=== PATIENT | female | born 2000 | race Caucasian/White ===

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

== ENCOUNTER 2019-01-04 15:01 | Emergency (ER) | payer MEDICAID ==
[2019-01-04] MEDS ORDERED: BENZONATATE 100 MG CAPSULE PO STA (16:01)
[2019-01-04] MEDS ORDERED: IPRATROPIUM/ALBUTEROL 3 ML NEB INH STA (16:01)
--- NOTE | 2019-01-04 16:03 | ED Physician Documentation ---
PD HPI URI - Stated complaint Stated Complaint: SOA - Chief complaint Chief Complaint: Resp - History obtained from History obtained from: Patient, Family - History of Present Illness Timing - onset: How many weeks ago (2.5) Timing duration: Weeks (2.5) Timing details: Gradual onset Pain level max: 0 Pain level now: 0 Associated symptoms: Nasal congestion, Rhinorrhea, Productive cough. No: Fever, Chills, Hemoptysis, Chest pain, Dyspnea Contributing factors: Sick contact Improves by: Rest Worsened by: Activity, Breathing Similar symptoms before: Diagnosis ("bronchitis") Recently seen: Not recently seen Review of Systems Ten Systems: 10 systems reviewed and negative Constitutional: denies: Fever, Chills GI: denies: Nausea, Vomiting, Diarrhea : denies: Now EGA Skin: denies: Rash Musculoskeletal: denies: Neck pain, Back pain Neurologic: denies: Headache PD PAST MEDICAL HISTORY - Past Medical History Past Medical History: No Cardiovascular: None Respiratory: Asthma Neuro: None Endocrine/Autoimmune: None GI: None 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 : None HEENT: None Psych: Depression, Anxiety, Panic attacks, Other Musculoskeletal: None Derm: None - Past Surgical History Past Surgical History: Yes General: Appendectomy /TANK CAR 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: Dilation and currettage - Present Medications Home Medications: Ambulatory Orders Medication Instructions Recorded Confirmed Ondansetron Odt [Zofran] 4 mg TL Q6H PRN #10 tablet 08/31/18 11/09/18 Albuterol Sulf [Ventolin Hfa 1 - 2 puffs INH Q4HR PRN #1 inhaler 11/07/18 11/09/18 Inhaler] Azithromycin [Zithromax] 250 mg PO DAILY #6 tablet 11/07/18 Benzonatate [Tessalon Perle] 100 mg PO TID PRN #25 capsule 11/10/18 Naproxen 375 mg PO BID #20 tablet 11/10/18 dexAMETHasone [Decadron] 4 mg PO DAILY #5 tablet 11/10/18 guaiFENesin/CODEINE [Robitussin AC] 10 ml PO Q6H PRN #240 ml 11/10/18 Albuterol Sulfate [Proventil Hfa] 2 puffs IH Q4H PRN #1 hfa.aer.ad 01/04/19 Benzonatate 200 mg PO Q6H PRN #20 capsule 01/04/19 - Allergies Allergies/Adverse Reactions: Allergies Allergy/AdvReac Type Severity Reaction Status Date / Time amoxicillin AdvReac Nausea Verified 11/09/18 23:25 varenicline [From Chantix] AdvReac Unknown Verified 01/04/19 15:15 - Social History Does the pt smoke?: Yes Smoking Status: Current every day smoker Does the pt drink ETOH?: Yes Does the pt have substance abuse?: No Substance Use and Type: Marijuana - Immunizations Immunizations are current?: Yes - POLST Patient has POLST: No PD ED PE NORMAL - Vitals Vital signs reviewed: Yes - General General: Alert and oriented X 3, No acute distress - HEENT HEENT: PERRL, Ears normal, Moist mucous membranes, Pharynx benign - Neck Neck: Supple, no meningeal sign, No adenopathy - Cardiac Cardiac: RRR, Strong equal pulses - Respiratory Respiratory: No respiratory distress, Other (Diminished breath sounds and wheezing bilaterally) - Abdomen Abdomen: Soft, Non tender, Non distended - Derm Derm: Warm and dry, No rash - Extremities Extremities: No edema - Neuro Neuro: Alert and oriented X 3 - Psych Psych: Normal mood, Normal affect Results - Vitals Vitals: Vital Signs - 24 hr 01/04/19 01/04/19 01/04/19 15:11 16:20 17:21 Temperature 36.9 C Heart Rate 98 77 78 Respiratory 18 20 18 Rate Blood Pressure 126/75 132/77 H O2 Saturation 98 99 Oxygen O2 Source Room air - Rads (name of study) Chest x-ray Radiology: Prelim report reviewed, EMP read contemporaneously, See rad report (normal) PD MEDICAL DECISION MAKING - ED course Complexity details: reviewed old records, reviewed results, re-evaluated patient, considered differential, d/w patient ED course: Patient is well-appearing, nontoxic. Afebrile. No hypoxia. Feels better after breathing treatment. We will prescribe an inhaler for home. No evidence of pneumonia. No indication for antibiotics. Patient counseled to quit smoking. Patient counseled regarding signs and symptoms for which I believe and urgent re-evaluation would be necessary. Patient with good understanding of and agreement to plan and is comfortable going home at this time This document was made in part using voice recognition software. While efforts are made to proofread this document, sound alike and grammatical errors may occur. Departure - Departure Disposition: 01 Home, Self Care Clinical Impression: Upper respiratory infection Qualifiers: URI type: unspecified viral URI Qualified Code(s): J06.9 - Acute upper respiratory infection, unspecified Condition: Good Instructions: ED URI Viral W Wheezing Follow-Up: your,doctor in 1 week [Other] Prescriptions: Albuterol Sulfate [Proventil Hfa] 2 puffs IH Q4H PRN #1 hfa.aer.ad PRN Reason: wheezing Benzonatate 200 mg PO Q6H PRN #20 capsule PRN Reason: Cough Comments: Use the albuterol as prescribed. Return if you worsen. Your x-ray does not show any evidence of pneumonia today. Discharge Date/Time: 01/04/19 17:24
--- NOTE | 2019-01-04 16:24 | XRAY Report ---
Reason: cough, wheezing, shortness of breath Procedure Date: 01/04/2019 Accession Number: [id number] / [id number] Procedure: XR - Chest 2 View X-Ray CPT Code: 72773 Final Report FULL RESULT: EXAM: CHEST RADIOGRAPHY EXAM DATE: 01/04/2019 04:14 PM. CLINICAL HISTORY: Cough, wheezing, shortness of breath. COMPARISON: CHEST 2 VIEW 11/10/2018 12:49 AM. TECHNIQUE: 2 views. FINDINGS: Lungs/Pleura: No focal opacities evident. No pleural effusion. No pneumothorax. Normal volumes. Mediastinum: Heart and mediastinal contours are unremarkable. Other: None. IMPRESSION: Normal 2-view chest radiography. RADIA
[2019-01-04 17:21] VITALS: BP 132/77
== END 2019-01-04 17:24 | disposition home or self-care (01) ==
LOC: ED 15:01
DX: J06.9 Acute upper respiratory infection, unspecified (principal); F17.200 Nicotine dependence, unspecified, uncomplicated
CPT/HCPCS: 71046; 94640; 99283; 99284; A9270

== ENCOUNTER 2019-01-12 05:25 | Emergency (ER) | payer MEDICAID ==
--- NOTE | 2019-01-12 05:40 | ED Physician Documentation ---
PD HPI ABD PAIN - Stated complaint Stated Complaint: FEM - Chief complaint Chief Complaint: Abd Pain - History obtained from History obtained from: Patient - History of Present Illness Timing - onset: Enter time (00:30), Today Timing - details: Abrupt onset Pain level now: 4 Quality: Pain Location: Suprapubic Associated symptoms: Nausea, Vomiting, Vaginal bleeding. No: Fever Recently seen: Emergency Dept (8 days ago for dyspnea) - Additional information Additional information: 16th [facility] ED visit in 12 months. c/o pelvic pain, cramping. I had an IUD placed in February and having problems since then. she c/o pelvic cramping since 00:30 today with chills, vaginal bleeding, nausea, vomiting. she has had ED visits for same symptoms (04/01, 05/13, 06/04) with unclear cause (treated empirically for BV on two of these occasions). has appointment with her quality assurance lead later this month. Review of Systems Constitutional: reports: Reviewed and negative Cardiac: reports: Reviewed and negative Respiratory: reports: Reviewed and negative GI: reports: Nausea, Vomiting. denies: Abdominal Pain (pelvic pain) : reports: Vaginal bleeding. 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: Dilation and currettage - Present Medications Home Medications: Ambulatory Orders Medication Instructions Recorded Confirmed Ketorolac [Toradol] 10 mg PO Q6H PRN #20 tablet 01/12/19 Ondansetron Odt [Zofran] 4 mg TL Q6H PRN #10 tablet 01/12/19 Sertraline HCl 50 mg PO DAILY 01/12/19 01/12/19 - Allergies Allergies/Adverse Reactions: Allergies Allergy/AdvReac Type Severity Reaction Status Date / Time amoxicillin AdvReac Nausea Verified 01/12/19 05:32 [email or web address] [From Chantix] AdvReac Unknown Verified 01/12/19 05:32 - Social History Does the pt smoke?: Yes Smoking Status: Current every day smoker Does the pt drink ETOH?: Yes Does the pt have substance abuse?: No - Immunizations Immunizations are current?: Yes - POLST Patient has POLST: No PD ED PE NORMAL - Vitals Vital signs reviewed: Yes - General General: Alert and oriented X 3, No acute distress, Well developed/nourished - Cardiac Cardiac: RRR, No murmur - Respiratory Respiratory: No respiratory distress, Clear bilaterally - Abdomen Abdomen: Soft, Non tender - Back Back: No CVA TTP - Derm Derm: Normal color, Warm and dry PD ED PE EXPANDED - Female Female : Normal external, Vaginal Bleeding (trace blood with clear mucous at OS), Shop Girl present, Other (2 IUD strings visiualized at OS) Results - Vitals Vitals: Oxygen O2 Source Room air - Labs Labs: Laboratory Tests 01/12/19 01/12/19 01/12/19 05:40 05:46 05:46 WBC 7.8 RBC 4.80 Hgb 14.2 Hct 41.9 MCV 87.3 MCH 29.6 MCHC 33.9 RDW 12.9 Plt Count 230 MPV 9.2 Neut # (Auto) 3.9 Lymph # (Auto) 3.3 [place] # (Auto) 0.5 Eos # (Auto) 0.1 Baso # (Auto) 0.0 Absolute Nucleated RBC 0.00 Nucleated RBC % 0.0 Sodium 140 Potassium 3.4 L Chloride 103 Carbon Dioxide 27 Anion Gap 10.0 BUN 8 Creatinine 0.6 Estimated GFR (MDRD) 129 Glucose 101 H Calcium 10.3 Total Bilirubin 0.4 AST 17 ALT 12 Alkaline Phosphatase 78 Total Protein 8.4 H Albumin 4.7 Globulin 3.7 Albumin/Globulin Ratio 1.3 Lipase 27 Urine Color YELLOW Urine Clarity CLEAR Urine pH 5.5 Ur Specific [place] >=1.030 H Urine Protein NEGATIVE Urine Glucose (UA) NEGATIVE Urine Ketones NEGATIVE Urine Occult Blood TRACE-LYSE Urine Nitrite NEGATIVE Urine Bilirubin NEGATIVE Urine Urobilinogen 0.2 (NORMAL) Ur Leukocyte Esterase NEGATIVE Ur Microscopic Review NOT INDICATED Urine Culture Comments NOT INDICATED Urine HCG, Qual NEGATIVE PD MEDICAL DECISION MAKING - ED course Complexity details: reviewed results, re-evaluated patient, considered differential, d/w patient ED course: no significant findings on exam including pelvic exam. reassuring blood tests and unremarkable UA, negative HCG. does not want IUD removed, will see her quality assurance lead in 2 weeks. Departure - Departure Disposition: 01 Home, Self Care Clinical Impression: Pelvic pain Condition: Good Instructions: ED Pelvic Pain [facility] Follow-Up: Maria Del Rosario Pickering CNM, ARNP [Provider Admit Priv/Credential] - Prescriptions: Ketorolac [Toradol] 10 mg PO Q6H PRN #20 tablet PRN Reason: Pain Ondansetron Odt [Zofran] 4 mg TL Q6H PRN #10 tablet PRN Reason: Nausea / Vomiting Discharge Date/Time: 01/12/19 07:46
[2019-01-12 05:55] LABS: BASOPHILS % (AUTO) 0.4 %; EOSINOPHILS # (AUTO) 0.1 10^3/uL (0.0-0.7); EOSINOPHILS % (AUTO) 0.6 %; HGB - HEMOGLOBIN 14.2 g/dL (12.0-16.0); LYMPHOCYTES # (AUTO) 3.3 10^3/uL (1.5-3.5); MEAN CORPUSCULAR HEMOGLOBIN 29.6 pg (27.0-31.0); MEAN CORPUSCULAR HGB CONC 33.9 g/dL (32.0-36.0); MEAN CORPUSCULAR VOLUME 87.3 fL (81.0-99.0); MEAN PLATELET VOLUME 9.2 fL (7.9-10.8); MONOCYTES # (AUTO) 0.5 10^3/uL (0.0-1.0); MONOCYTES % (AUTO) 6.2 %; NEUTROPHILS # (AUTO) 3.9 10^3/uL (1.5-6.6); NEUTROPHILS % (AUTO) 50.7 %; PLT - PLATELET COUNT 230 10^3/uL (130-450); RED CELL DISTRIBUTION WIDTH 12.9 % (12.0-15.0); WHITE BLOOD COUNT 7.8 x10^3/uL (4.8-10.8)
[2019-01-12 05:56] LABS: BILIRUBIN,URINE NEGATIVE (NEGATIVE); GLUCOSE, URINE (UA) NEGATIVE (NEGATIVE); KETONES,URINE (UA) NEGATIVE (NEGATIVE); LEUKOCYTE ESTERASE, URINE NEGATIVE (NEGATIVE); NITRITE,URINE NEGATIVE (NEGATIVE); OCCULT BLOOD,URINE TRACE-LYSE (NEGATIVE); PH,URINE 5.5 PH (5.0-7.5); PROTEIN,URINE NEGATIVE (NEGATIVE); UROBILINOGEN,URINE 0.2 (NORMAL) E.U./dL (NORMAL)
[2019-01-12 05:58] LABS: CLARITY,URINE CLEAR (CLEAR); HCG UR QUAL NEGATIVE
[2019-01-12] MEDS ORDERED: ONDANSETRON 4 MG/2 ML VIAL IVP STA (06:00)
[2019-01-12] MEDS ORDERED: KETOROLAC 30 MG/ML VIAL IVP STA (06:00)
[2019-01-12 06:11] LABS: ALBUMIN 4.7 g/dL (3.2-5.5); ALBUMIN/GLOBULIN RATIO 1.3 (1.0-2.2); BILIRUBIN,TOTAL 0.4 mg/dL (0.2-1.0); CALCIUM 10.3 mg/dL (8.5-10.3); CREATININE 0.6 mg/dL (0.4-1.0); TOTAL PROTEIN 8.4 g/dL (6.7-8.2)
[2019-01-12 06:45] VITALS: BP 110/80
== END 2019-01-12 07:46 | disposition home or self-care (01) ==
LOC: ED 05:25
DX: R10.2 Pelvic and perineal pain (principal); F17.200 Nicotine dependence, unspecified, uncomplicated; Z97.5 Presence of (intrauterine) contraceptive device
CPT/HCPCS: 36415; 80053; 81001; 81003; 81025; 83690; 85025; 87086; 96374; 96375; 99284

== ENCOUNTER 2019-01-21 08:00 | Outpatient (CLI) | payer MEDICAID ==
[2019-01-21 18:52] LABS: CANDIDA GROUP DNA POSITIVE (NEGATIVE); CANDIDA KRUSEI DNA NEGATIVE (NEGATIVE); TRICHOMONAS VAGINALIS DNA NEGATIVE (NEGATIVE)
[2019-01-23 18:23] LABS: TRICHOMONAS VAGINALIS DNA NEGATIVE (NEGATIVE)
== END 2019-01-21 23:59 | disposition home or self-care (01) ==
LOC: LAB.R 08:00
PROVIDERS: ATTEND Nurse Practitioner Obstetrics & Gynecology
DX: R10.2 Pelvic and perineal pain (principal)
CPT/HCPCS: 87491; 87591; 87661; 87801

== ENCOUNTER 2019-02-23 23:52 | Emergency (ER) | payer MEDICAID ==
[2019-02-23 23:59] VITALS: BP 128/74
[2019-02-24] MEDS ORDERED: MAG HYDROX/AL HYDROX/SIMETH 30 ML UDC PO STA (00:41)
[2019-02-24] MEDS ORDERED: FAMOTIDINE 20 MG/2 ML VIAL IVP STA (00:41)
[2019-02-24] MEDS ORDERED: ONDANSETRON 4 MG/2 ML VIAL IVP STA (00:41)
[2019-02-24] MEDS ORDERED: SODIUM CHLORIDE 0.9% 1,000 ML IV ONE (00:41)
[2019-02-24] MEDS ORDERED: LIDOCAINE VISCOUS 2% 15 ML UDC MM STA (00:41)
[2019-02-24 01:06] LABS: BASOPHILS % (AUTO) 0.3 %; EOSINOPHILS # (AUTO) 0.1 10^3/uL (0.0-0.7); EOSINOPHILS % (AUTO) 0.5 %; LYMPHOCYTES # (AUTO) 4.3 10^3/uL (1.5-3.5); MEAN CORPUSCULAR HGB CONC 33.3 g/dL (32.0-36.0); MEAN CORPUSCULAR VOLUME 87.1 fL (81.0-99.0); MEAN PLATELET VOLUME 9.2 fL (7.9-10.8); MONOCYTES # (AUTO) 0.6 10^3/uL (0.0-1.0); MONOCYTES % (AUTO) 6.1 %; NEUTROPHILS # (AUTO) 5.2 10^3/uL (1.5-6.6); NEUTROPHILS % (AUTO) 50.8 %; PLT - PLATELET COUNT 227 10^3/uL (130-450); RED BLOOD COUNT 4.82 10^6/uL (4.20-5.40); RED CELL DISTRIBUTION WIDTH 13.2 % (12.0-15.0); WHITE BLOOD COUNT 10.2 x10^3/uL (4.8-10.8)
[2019-02-24 01:16] LABS: ALBUMIN 4.6 g/dL (3.2-5.5); ALBUMIN/GLOBULIN RATIO 1.2 (1.0-2.2); BILIRUBIN,TOTAL 0.6 mg/dL (0.2-1.0); CALCIUM 9.7 mg/dL (8.5-10.3); CREATININE 0.6 mg/dL (0.4-1.0); MAGNESIUM 1.9 mg/dL (1.7-2.8); TOTAL PROTEIN 8.3 g/dL (6.7-8.2)
[2019-02-24] MEDS ORDERED: ONDANSETRON ODT 4 MG Prepack 2 TL PRN (02:20)
--- NOTE | 2019-02-24 02:26 | ED Physician Documentation ---
PD HPI NVD - Stated complaint Stated Complaint: VOMITING - Chief complaint Chief Complaint: Abd Pain - History obtained from History obtained from: Patient - History of Present Illness Timing - onset: Today (Onset of 5:00 this morning with nausea and vomiting and upper abdominal pain. The pain is been inconsistent and mostly preceding the nausea and vomiting. She had been drinking heavily the night before and thought it was a stomach irritation from that. No unusual foods. No diarrhea. She has noted just some's mild hematemesis in the past couple of hours.) Timing - duration: Hours (18) Timing - details: Abrupt onset, Still present Associated symptoms: Abdominal pain (epigastric), Chest pain (some lower esophageal). No: Fever, Loss of appetite, Weight loss Contributing factors: Alcohol use (episodic but had drank moderately heavy the night before). No: Sick contact, Bad food, Recent antibiotics Similar symptoms before: Has not had sx before Review of Systems Constitutional: denies: Fever, Chills Nose: denies: Rhinorrhea / runny nose, Congestion Throat: denies: Sore throat Cardiac: denies: Palpitations Respiratory: denies: Cough GI: reports: Abdominal Pain, Nausea, Vomiting, Hematemesis (faint just the past couple of emeses.). 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: Dilation and currettage - Present Medications Home Medications: Ambulatory Orders Medication Instructions Recorded Confirmed Ketorolac [Toradol] 10 mg PO Q6H PRN #20 tablet 01/12/19 Ondansetron Odt [Zofran] 4 mg TL Q6H PRN #10 tablet 01/12/19 Sertraline HCl 50 mg PO DAILY 01/12/19 01/12/19 Famotidine 20 mg PO DAILY #20 tablet 02/24/19 Lidocaine Viscous 2% [Xylocaine 5 ml PO Q4H PRN #100 ml 02/24/19 Viscous 2%] Ondansetron Odt [Zofran] 4 mg TL Q6H PRN #10 tablet 02/24/19 - Allergies Allergies/Adverse Reactions: Allergies Allergy/AdvReac Type Severity Reaction Status Date / Time amoxicillin AdvReac Nausea Verified 02/23/19 23:59 [email or web address] [From Chantix] AdvReac Unknown Verified 02/23/19 23:59 - Social History Does the pt smoke?: Yes Smoking Status: Current every day smoker Does the pt drink ETOH?: Yes Does the pt have substance abuse?: No - Immunizations Immunizations are current?: Yes - POLST Patient has POLST: No PD ED PE NORMAL - Vitals Vital signs reviewed: Yes - General General: Alert and oriented X 3, Well developed/nourished - HEENT HEENT: Ears normal, Moist mucous membranes, Pharynx benign - Neck Neck: Supple, no meningeal sign, No adenopathy - Cardiac Cardiac: RRR, No murmur - Respiratory Respiratory: Clear bilaterally - Abdomen Abdomen: Normal bowel sounds, Soft, Non distended, No organomegaly, Other (Some tenderness with mild local guarding in the epigastric area. The right upper quadrant is not particularly tender. Limited bedside ultrasound did not show any obvious gallstones or wall thickening.) - Female Female : Deferred - Rectal Rectal: Deferred - Back Back: No CVA TTP - Derm Derm: Normal color Results - Vitals Vitals: Vital Signs - 24 hr 02/23/19 23:55 Temperature 36.0 C L Heart Rate 94 Respiratory 18 Rate Blood Pressure 128/74 O2 Saturation 98 Oxygen O2 Source Room air - Labs Labs: Laboratory Tests 02/24/19 02/24/19 00:50 00:50 WBC 10.2 RBC 4.82 Hgb 14.0 Hct 42.0 MCV 87.1 MCH 29.0 MCHC 33.3 RDW 13.2 Plt Count 227 MPV 9.2 Neut # (Auto) 5.2 Lymph # (Auto) 4.3 H [place] # (Auto) 0.6 Eos # (Auto) 0.1 Baso # (Auto) 0.0 Absolute Nucleated RBC 0.00 Nucleated RBC % 0.0 Sodium 138 Potassium 3.2 L Chloride 100 L Carbon Dioxide 27 Anion Gap 11.0 BUN 10 Creatinine 0.6 Estimated GFR (MDRD) 127 Glucose 87 Calcium 9.7 Magnesium 1.9 Total Bilirubin 0.6 AST 19 ALT 14 Alkaline Phosphatase 75 Total Protein 8.3 H Albumin 4.6 Globulin 3.7 Albumin/Globulin Ratio 1.2 Lipase 26 PD MEDICAL DECISION MAKING - ED course Complexity details: reviewed results, re-evaluated patient (Much improved with IV fluids and medications for nausea and some for pain. GI cocktail also gave improvement.), considered differential, d/w patient Departure - Departure Disposition: 01 Home, Self Care Clinical Impression: Nausea & vomiting Qualifiers: Vomiting type: unspecified Vomiting Intractability: non-intractable Qualified Code(s): R11.2 - Nausea with vomiting, unspecified Gastritis Qualifiers: Gastritis type: unspecified gastritis Chronicity: acute Gastritis bleeding: without bleeding Qualified Code(s): K29.00 - Acute gastritis without bleeding Condition: Stable Record reviewed to determine appropriate education?: Yes Instructions: ED Gastritis Prescriptions: Famotidine 20 mg PO DAILY #20 tablet Lidocaine Viscous 2% [Xylocaine Viscous 2%] 5 ml PO Q4H PRN #100 ml PRN Reason: Pain Ondansetron Odt [Zofran] 4 mg TL Q6H PRN #10 tablet PRN Reason: Nausea / Vomiting Comments: Stay well-hydrated with frequent fluids. [place] food initially and progress diet as able over the next couple of days. Avoid irritants such as alcohol, spicy foods, coffee.... Ondansetron every 6 hours if needed for nausea and vomiting. Antacid such as Maalox or Mylanta as needed for esophageal and stomach pain. You can add lidocaine to that if needed for the discomfort. Famotidine acid reducing medicine daily for the next 2 to 3 weeks to keep the stomach healing. Recheck if not improved well over the next few days completely. Discharge Date/Time: 02/24/19 02:46
== END 2019-02-24 02:46 | disposition home or self-care (01) ==
LOC: ED 23:52
DX: K29.00 Acute gastritis without bleeding (principal); F17.200 Nicotine dependence, unspecified, uncomplicated
CPT/HCPCS: 36415; 80053; 83690; 83735; 85025; 96374; 96375; 99283; 99284; A9270

== ENCOUNTER 2019-04-12 00:18 | Emergency (ER) | payer MEDICAID ==
--- NOTE | 2019-04-12 00:50 | ED Physician Documentation ---
PD HPI FEMALE - Stated complaint Stated Complaint: FEM - Chief complaint Chief Complaint: General - History obtained from History obtained from: Patient - History of Present Illness Timing - onset: How many weeks ago (2) Timing - duration: Weeks (2) Timing - details: Gradual onset, Still present Associated symptoms: Pelvic pain Similar symptoms before: Diagnosis () Recently seen: Not recently seen - Additional information Additional information: 19-year-old female who has an IUD in place has been dissatisfied with its side effects since it was put in. She feels that there is significant discomfort associated with it and she feels like she is now . She complains of change in nipple color breast tenderness nausea. She states that her sexual partner is unable to feel the strings to the IUD. She wants to "get her IUD checked out ". Review of Systems Constitutional: reports: Myalgias. denies: Fever Ears: denies: Ear pain Nose: denies: Congestion Throat: denies: Sore throat Cardiac: denies: Chest pain / pressure, Palpitations Respiratory: denies: Dyspnea, Cough GI: reports: Nausea, Vomiting : reports: Control (IUD). 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 : None HEENT: None Psych: Depression, Anxiety, Panic attacks, Other Musculoskeletal: None Derm: None - Past Surgical History Past Surgical History: Yes General: Appendectomy /ROPE TIER: Dilation and currettage - Present Medications Home Medications: Ambulatory Orders Medication Instructions Recorded Confirmed predniSONE [Deltasone] 2 tab PO DAILY 10 Days #10 tab 03/14/19 - Allergies Allergies/Adverse Reactions: Allergies Allergy/AdvReac Type Severity Reaction Status Date / Time amoxicillin AdvReac Nausea Verified 03/14/19 11:19 [email or web address] [From Chantix] AdvReac Unknown Verified 03/14/19 11:19 - Social History Does the pt smoke?: Yes Smoking Status: Current every day smoker Does the pt drink ETOH?: Yes Does the pt have substance abuse?: No - Immunizations Immunizations are current?: Yes - POLST Patient has POLST: No PD ED PE NORMAL - Vitals Vital signs reviewed: Yes (tachy and hypertensive) - General General: Alert and oriented X 3, No acute distress, Well developed/nourished - HEENT HEENT: Atraumatic, PERRL, EOMI - Respiratory Respiratory: No respiratory distress - Abdomen Abdomen: Soft, Non tender - Female Female : Cst present (Perla), Other (The IUD strings are visible there is pain associated with swabbing the cervix. There is cervical motion tendern ess as well.There is no significant discharge.) - Derm Derm: Normal color, Warm and dry, No rash - Extremities Extremities: No deformity, No edema - Neuro Neuro: Alert and oriented X 3, No motor deficit, No sensory deficit, Normal speech Eye Opening: Spontaneous Motor: Obeys Commands Verbal: Oriented GCS Score: 15 - Psych Psych: Normal mood, Normal affect Results - Vitals Vitals: Vital Signs - 24 hr 04/12/19 00:23 Temperature 36.8 C Heart Rate 116 H Respiratory 16 Rate Blood Pressure 144/84 H O2 Saturation 99 Oxygen O2 Source Room air - Labs Labs: Laboratory Tests 04/12/19 04/12/19 04/12/19 00:52 00:52 01:20 HCG, Quant < 0.60 Urine Color YELLOW Urine Clarity CLEAR Urine pH 6.0 Ur Specific [place] 1.025 1.025 Urine Protein NEGATIVE Urine Glucose (UA) NEGATIVE Urine Ketones NEGATIVE Urine Occult Blood NEGATIVE Urine Nitrite NEGATIVE Urine Bilirubin NEGATIVE Urine Urobilinogen 0.2 (NORMAL) Ur Leukocyte Esterase NEGATIVE Ur Microscopic Review NOT INDICATED Urine Culture Comments NOT INDICATED Urine HCG, Qual NEGATIVE Procedures - Bedside sono Bedside sono by EMP: With use of bedside ultrasound the pelvis is imaged and the IUD appears to be p ositioned in the fundus of the uterus appropriately. PD MEDICAL DECISION MAKING - ED course Complexity details: reviewed results, re-evaluated patient, considered differential, d/w patient, d/w family ED course: 19-year-old female with a feeling that she is has had 3- tests a test negative here in the urine and we have followed that up with blood test also demonstrating no evidence of . I did discuss with the patient the potential for pseudocyesis and she will take that under advisement. She did want her IUD "checked out "and here in the emergency department on pelvic examination the string appears intact and in the place that it belongs and on bedside ultrasound the IUD appears to be in the uterus in the appropriate position. She did have cervical motion tenderness with pelvic examination and some tenderness to swabbing the cervix and she is treated for pelvic infection with 250 mg of Rocephin IM and 1 g of azithromycin p.o. Sample is sent for analysis. Departure - Departure Disposition: 01 Home, Self Care Clinical Impression: IUD (intrauterine device) in place, Pelvic pain, PID (acute pelvic inflammatory disease) Condition: Stable Instructions: ED PID Follow-Up: [facility] [Provider Group]
[2019-04-12 01:00] LABS: BILIRUBIN,URINE NEGATIVE (NEGATIVE); GLUCOSE, URINE (UA) NEGATIVE (NEGATIVE); KETONES,URINE (UA) NEGATIVE (NEGATIVE); LEUKOCYTE ESTERASE, URINE NEGATIVE (NEGATIVE); NITRITE,URINE NEGATIVE (NEGATIVE); OCCULT BLOOD,URINE NEGATIVE (NEGATIVE); PROTEIN,URINE NEGATIVE (NEGATIVE); UROBILINOGEN,URINE 0.2 (NORMAL) E.U./dL (NORMAL)
[2019-04-12 01:03] LABS: CLARITY,URINE CLEAR (CLEAR); HCG UR QUAL NEGATIVE
[2019-04-12] MEDS ORDERED: LIDOCAINE 1% 2 ML VIAL MC ONE (02:54)
[2019-04-12] MEDS ORDERED: AZITHROMYCIN 250 MG TABLET PO STA (02:54)
[2019-04-12] MEDS ORDERED: cefTRIAXone 250 MG VIAL IM STA (02:54)
[2019-04-12 03:19] VITALS: BP 123/77
[2019-04-12 04:46] LABS: CANDIDA GROUP DNA POSITIVE (NEGATIVE); CANDIDA KRUSEI DNA NEGATIVE (NEGATIVE); TRICHOMONAS VAGINALIS DNA NEGATIVE (NEGATIVE)
== END 2019-04-12 03:19 | disposition home or self-care (01) ==
LOC: ED 00:18
DX: N73.9 Female pelvic inflammatory disease, unspecified (principal); F17.210 Nicotine dependence, cigarettes, uncomplicated; Z97.5 Presence of (intrauterine) contraceptive device
CPT/HCPCS: 36415; 81003; 81025; 84702; 87481; 87661; 87801; 96372; 99283; 99284; A9270; 81001; 87086

== ENCOUNTER 2019-05-19 11:17 | Emergency (ER) | payer MEDICAID ==
--- NOTE | 2019-05-19 11:49 | ED Physician Documentation ---
PD HPI URI - Stated complaint Stated Complaint: SOA/CHEST PX - Chief complaint Chief Complaint: Resp - History obtained from History obtained from: Patient - History of Present Illness Timing - onset: How many days ago (3) Timing duration: Days (3) Timing details: Gradual onset (She had been feeling a little bit of shortness of breath and tightness in the chest with a mild cough for 2 to 3 days. She thought it might just be allergies that she does get seasonal allergies with some asthma. No fever or chills. Notes purulent sputum. Last night into today she also had nausea vomiting and some diarrhea. She does have a feeling of general body aches. Still no fever. She is concerned about viral illness in particular coronavirus. She works at [employer] and so still has been having some socially distant contact with people at work.) Associated symptoms: Dry cough, Dyspnea, NVD. No: Fever, Chills, Nasal congestion, Sore throat Contributing factors: COPD / asthma. No: Sick contact, Travel, Immunocompromised Similar symptoms before: Diagnosis (Seasonal allergies with asthma and recurrent bronchitis about once or twice a year. She uses an MDI of albuterol just when she is ill and does not typically needed at baseline.) Recently seen: Not recently seen Review of Systems Constitutional: reports: Myalgias. denies: Fever, Chills Nose: reports: Congestion. denies: Rhinorrhea / runny nose Throat: denies: Sore throat Cardiac: denies: Chest pain / pressure, Palpitations Respiratory: reports: Dyspnea, Cough, Wheezing GI: reports: Nausea, Vomiting, Diarrhea. 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 and currettage - Present Medications Home Medications: Ambulatory Orders Medication Instructions Recorded Confirmed Albuterol Sulfate [Albuterol 2 puffs IH QID #1 hfa.aer.ad 05/19/19 Sulfate Hfa] Diphenoxylate/Atropine [Lomotil] 1 each PO QID PRN #12 tablet 05/19/19 Naproxen 375 mg PO BID #20 tablet 05/19/19 Ondansetron Odt [Zofran] 4 mg TL Q6H PRN #15 tablet 05/19/19 - Allergies Allergies/Adverse Reactions: Allergies Allergy/AdvReac Type Severity Reaction Status Date / Time amoxicillin AdvReac Nausea Verified 05/19/19 11:24 [email or web address] [From Chantix] AdvReac Unknown Verified 05/19/19 11:24 - Social History Does the pt smoke?: Yes Smoking Status: Current every day smoker Does the pt drink ETOH?: Yes Does the pt have substance abuse?: No - Immunizations Immunizations are current?: Yes - POLST Patient has POLST: No PD ED PE NORMAL - Vitals Vital signs reviewed: Yes - General General: Alert and oriented X 3, No acute distress, Well developed/nourished - HEENT HEENT: Ears normal, Moist mucous membranes, Pharynx benign - Neck Neck: Supple, no meningeal sign, No adenopathy - Cardiac Cardiac: RRR, No murmur - Respiratory Respiratory: No: Clear bilaterally (some mild wheezing diffusely. No coarse sounds. ) - Abdomen Abdomen: Normal bowel sounds, Soft, Non distended, No organomegaly, Other (Mild epigastric tenderness without any guarding rebound or rigidity. The rest of abdomen is soft.) - Female Female : Deferred - Rectal Rectal: Deferred - Back Back: No CVA TTP - Derm Derm: Normal color, Warm and dry - Neuro Neuro: Alert and oriented X 3, No motor deficit, Normal speech Results - Vitals Vitals: Vital Signs - 24 hr 05/19/19 05/19/19 05/19/19 11:20 12:54 13:26 Temperature 36.4 C L Heart Rate 81 82 87 Respiratory 18 18 19 Rate Blood Pressure 133/77 H 122/64 O2 Saturation 97 100 Oxygen O2 Source Room air - Labs Labs: Laboratory Tests 05/19/19 05/19/19 05/19/19 12:35 12:35 12:35 WBC 8.2 RBC 4.50 Hgb 13.2 Hct 40.0 MCV 88.9 MCH 29.3 MCHC 33.0 RDW 12.7 Plt Count 222 MPV 9.3 Neut # (Auto) 6.4 Lymph # (Auto) 1.5 [place] # (Auto) 0.3 Eos # (Auto) 0.0 Baso # (Auto) 0.0 Absolute Nucleated RBC 0.00 Nucleated RBC % 0.0 Sodium 137 Potassium 3.6 Chloride 105 Carbon Dioxide 23 Anion Gap 9.0 BUN 6 Creatinine 0.7 Estimated GFR (MDRD) 107 Glucose 115 H Calcium 9.3 Total Bilirubin 0.4 AST 20 ALT 15 Alkaline Phosphatase 85 Total Protein 8.6 H Albumin 4.6 Globulin 4.0 Albumin/Globulin Ratio 1.1 Lipase 28 Influenza A (Rapid) Negative Influenza B (Rapid) Negative PD MEDICAL DECISION MAKING - ED course Complexity details: considered differential (Sounds likely to be a viral illness given the prodrome of some chest tightness and mild cough and now nausea vomiting and diarrhea. No fevers noted. Consideration for coronavirus. Alternatives would be influenza or other viral illnesses. Less likely to be food poisoning or food related. She is having some exacerbation of her asthma/bronchitis so can use an inhaler as well. She does not look particularly dehydrated and is willing to try oral antiemetic and oral rehydration.), d/w patient Departure - Departure Disposition: 01 Home, Self Care Clinical Impression: Viral illness Dyspnea Qualifiers: Dyspnea type: shortness of breath Qualified Code(s): R06.02 - Shortness of breath Condition: Stable Record reviewed to determine appropriate education?: Yes Instructions: ED Viral Syndrome Prescriptions: Albuterol Sulfate [Albuterol Sulfate Hfa] 2 puffs IH QID #1 hfa.aer.ad Diphenoxylate/Atropine [Lomotil] 1 each PO QID PRN #12 tablet PRN Reason: Diarrhea Naproxen 375 mg PO BID #20 tablet Ondansetron Odt [Zofran] 4 mg TL Q6H PRN #15 tablet PRN Reason: Nausea / Vomiting Comments: Your chest x-ray appears clear. Your blood tests are normal. Your flu test is negative. The COV ID test will result in 2 or 3 days. At this point would presume a viral type illness and treat with staying well- hydrated and Tylenol if needed for fevers or pains. Can use some naproxen twice daily for inflammation and pains. Use albuterol inhaler 2 puffs 4 times a day for the next several days to a week for breathing. Add ondansetron if needed for nausea and Lomotil for diarrhea. Recheck if not improving over the next couple of days. You will be called with your COV ID test result when it comes back. Forms: Activity restrictions Discharge Date/Time: 05/19/19 13:37
[2019-05-19] MEDS ORDERED: DIPHENOX/ATROPINE 2.5/0.025 MG TABLET PO STA (12:14)
[2019-05-19] MEDS ORDERED: ACETAMINOPHEN 325 MG TABLET PO STA (12:14)
[2019-05-19] MEDS ORDERED: ONDANSETRON ODT 4 MG TABLET TL STA (12:14)
[2019-05-19] MEDS ORDERED: ALBUTEROL 1 PUFF INH STA (12:14)
[2019-05-19 12:55] LABS: BASOPHILS % (AUTO) 0.2 %; HGB - HEMOGLOBIN 13.2 g/dL (12.0-16.0); LYMPHOCYTES # (AUTO) 1.5 10^3/uL (1.5-3.5); LYMPHOCYTES % (AUTO) 18.6 %; MEAN CORPUSCULAR HEMOGLOBIN 29.3 pg (27.0-31.0); MEAN CORPUSCULAR VOLUME 88.9 fL (81.0-99.0); MEAN PLATELET VOLUME 9.3 fL (7.9-10.8); MONOCYTES # (AUTO) 0.3 10^3/uL (0.0-1.0); MONOCYTES % (AUTO) 3.4 %; NEUTROPHILS # (AUTO) 6.4 10^3/uL (1.5-6.6); NEUTROPHILS % (AUTO) 77.4 %; PLT - PLATELET COUNT 222 10^3/uL (130-450); RED CELL DISTRIBUTION WIDTH 12.7 % (12.0-15.0); WHITE BLOOD COUNT 8.2 x10^3/uL (4.8-10.8)
[2019-05-19 13:08] LABS: ALBUMIN 4.6 g/dL (3.2-5.5); ALBUMIN/GLOBULIN RATIO 1.1 (1.0-2.2); BILIRUBIN,TOTAL 0.4 mg/dL (0.2-1.0); CALCIUM 9.3 mg/dL (8.5-10.3); CREATININE 0.7 mg/dL (0.4-1.0); TOTAL PROTEIN 8.6 g/dL (6.7-8.2)
--- NOTE | 2019-05-19 13:22 | XRAY Report ---
Reason: cough and dyspnea Procedure Date: 05/19/2019 Accession Number: [id number] / [id number] Procedure: XR - Chest 1 View X-Ray CPT Code: 90004 Final Report FULL RESULT: EXAM: CHEST RADIOGRAPHY EXAM DATE: 05/19/2019 12:42 PM. CLINICAL HISTORY: Cough and dyspnea. COMPARISON: CHEST 2 VIEW 01/04/2019 4:02 PM. TECHNIQUE: 1 view. FINDINGS: Lungs/Pleura: No focal opacities evident. No pleural effusion. No pneumothorax. Mediastinum: Within exam limitations, the cardiomediastinal contour is normal. Other: None. IMPRESSION: Normal single view chest. RADIA
[2019-05-19 13:26] VITALS: BP 122/64
== END 2019-05-19 13:37 | disposition home or self-care (01) ==
LOC: ED 11:17
DX: B34.9 Viral infection, unspecified (principal); R06.00 Dyspnea, unspecified; F17.200 Nicotine dependence, unspecified, uncomplicated
CPT/HCPCS: 36415; 71045; 80053; 83690; 85025; 87275; 87276; 87635; 94640; 94664; 99284; A9270; Q0162; 81599

== ENCOUNTER 2019-05-31 10:42 | Emergency (ER) | payer MEDICAID ==
[2019-05-31 11:00] VITALS: BP 135/80
[2019-05-31] MEDS ORDERED: LIDOCAINE 1% 2 ML VIAL MC ONE (11:23)
[2019-05-31] MEDS ORDERED: cefTRIAXone 250 MG VIAL IM STA (11:23)
[2019-05-31] MEDS ORDERED: AZITHROMYCIN 250 MG TABLET PO STA (11:23)
--- NOTE | 2019-05-31 11:24 | ED Physician Documentation ---
PD HPI FEMALE - Stated complaint Stated Complaint: FEMALE - Chief complaint Chief Complaint: General - History obtained from History obtained from: Patient - History of Present Illness Timing - onset: How many weeks ago (3) Timing - duration: Weeks (3) Timing - details: Gradual onset, Still present, Waxing and waning Associated symptoms: Pelvic pain, Vaginal discharge Contributing factors: IUD, Sexually active, Exposed to STD. No: Similar symptoms before: Has not had sx before Recently seen: Emergency Dept Review of Systems Constitutional: denies: Fever Eyes: denies: Decreased vision Ears: denies: Ear pain Nose: denies: Congestion Throat: denies: Sore throat Respiratory: denies: Dyspnea, Cough GI: denies: Nausea, Vomiting : reports: Discharge. denies: Dysuria, Frequency PD PAST MEDICAL HISTORY - Past Medical History Cardiovascular: None Respiratory: None Neuro: None Endocrine/Autoimmune: None GI: None OUTREACH LIAISON: None : None HEENT: None Psych: Depression, Anxiety, Panic attacks, Other Musculoskeletal: None Derm: None - Past Surgical History Past Surgical History: Yes General: Appendectomy /OUTREACH LIAISON: Dilation and currettage - Present Medications Home Medications: Ambulatory Orders Medication Instructions Recorded Confirmed No Known Home Medications 05/31/19 05/31/19 - Allergies Allergies/Adverse Reactions: Allergies Allergy/AdvReac Type Severity Reaction Status Date / Time amoxicillin AdvReac Nausea Verified 05/31/19 11:00 [email or web address] [From Chantix] AdvReac Unknown Verified 05/31/19 11:00 - Social History Does the pt smoke?: Yes Smoking Status: Current every day smoker Does the pt drink ETOH?: Yes Does the pt have substance abuse?: No - Immunizations Immunizations are current?: Yes - POLST Patient has POLST: No PD ED PE NORMAL - Vitals Vital signs reviewed: Yes (hypertensive ) - General General: Alert and oriented X 3, No acute distress, Well developed/nourished - HEENT HEENT: Atraumatic, PERRL, EOMI - Respiratory Respiratory: No respiratory distress - Abdomen Abdomen: Normal bowel sounds, Soft, Non distended, No organomegaly, Other (minimal suprpubic tenderness. ) - Back Back: No CVA TTP, No spinal TTP - Derm Derm: Normal color, Warm and dry, No rash - Extremities Extremities: No deformity, No edema, No calf tenderness / cord - Neuro Neuro: Alert and oriented X 3, rail project engineer 2-12 intact, No motor deficit, No sensory deficit, Normal speech Eye Opening: Spontaneous Motor: Obeys Commands Verbal: Oriented GCS Score: 15 - Psych Psych: Normal mood, Normal affect Results - Vitals Vitals: Vital Signs - 24 hr 05/31/19 10:55 Temperature 36.8 C Heart Rate 90 Respiratory 18 Rate Blood Pressure 135/80 H O2 Saturation 97 Oxygen O2 Source Room air - Labs Labs: Laboratory Tests 05/31/19 11:23 Urine Color YELLOW Urine Clarity HAZY Urine pH 7.0 Ur Specific [place] 1.020 Urine Protein NEGATIVE Urine Glucose (UA) NEGATIVE Urine Ketones NEGATIVE Urine Occult Blood MODERATE H Urine Nitrite NEGATIVE Urine Bilirubin NEGATIVE Urine Urobilinogen 0.2 (NORMAL) Ur Leukocyte Esterase TRACE H Urine RBC 6-10 H Urine WBC 6-10 H Ur Squamous Epith Cells MOD Squamous H Urine Bacteria Moderate H Ur Microscopic Review INDICATED Urine Culture Comments NOT INDICATED Urine HCG, Qual NEGATIVE PD MEDICAL DECISION MAKING - ED course Complexity details: reviewed old records, considered differential, d/w patient ED course: 19-year-old female with exposure to chlamydia has some vague symptoms a specimen was obtained she is treated. She is administered Rocephin 250 mg IM and azithromycin 1 g p.o. Departure - Departure Disposition: 01 Home, Self Care Clinical Impression: Exposure to STD Condition: Stable Instructions: ED Chlamydia Female Follow-Up: [facility] [Provider Group] Discharge Date/Time: 05/31/19 12:43
[2019-05-31 11:32] LABS: BILIRUBIN,URINE NEGATIVE (NEGATIVE); GLUCOSE, URINE (UA) NEGATIVE (NEGATIVE); KETONES,URINE (UA) NEGATIVE (NEGATIVE); LEUKOCYTE ESTERASE, URINE TRACE (NEGATIVE); NITRITE,URINE NEGATIVE (NEGATIVE); OCCULT BLOOD,URINE MODERATE (NEGATIVE); PROTEIN,URINE NEGATIVE (NEGATIVE); UROBILINOGEN,URINE 0.2 (NORMAL) E.U./dL (NORMAL)
[2019-05-31 11:34] LABS: CLARITY,URINE HAZY (CLEAR); HCG UR QUAL NEGATIVE
[2019-05-31 11:41] LABS: BACTERIA,URINE Moderate /HPF (None Seen); SQUAMOUS EPITHELIAL CELL,UR MOD Squamous (<= Few)
[2019-05-31 17:18] LABS: CANDIDA GROUP DNA NEGATIVE (NEGATIVE); CANDIDA KRUSEI DNA NEGATIVE (NEGATIVE); TRICHOMONAS VAGINALIS DNA NEGATIVE (NEGATIVE)
[2019-05-31 20:23] LABS: TRICHOMONAS VAGINALIS DNA NEGATIVE (NEGATIVE)
== END 2019-05-31 12:43 | disposition home or self-care (01) ==
LOC: ED 10:42
DX: Z20.2 Contact with and (suspected) exposure to infections with a predominantly sexual mode of transmission (principal); F17.200 Nicotine dependence, unspecified, uncomplicated
CPT/HCPCS: 81001; 81025; 87481; 87491; 87591; 87661; 87801; 96372; 99283; 99284; A9270; 81003; 87086

== ENCOUNTER 2019-07-16 11:27 | Outpatient (CLI) | payer MEDICAID ==
[2019-07-16 11:52] LABS: BASOPHILS % (AUTO) 0.5 %; EOSINOPHILS # (AUTO) 0.1 10^3/uL (0.0-0.7); EOSINOPHILS % (AUTO) 0.8 %; HGB - HEMOGLOBIN 13.4 g/dL (12.0-16.0); LYMPHOCYTES # (AUTO) 2.3 10^3/uL (1.5-3.5); LYMPHOCYTES % (AUTO) 34.9 %; MEAN CORPUSCULAR HEMOGLOBIN 31.5 pg (27.0-31.0); MEAN CORPUSCULAR HGB CONC 34.4 g/dL (32.0-36.0); MEAN CORPUSCULAR VOLUME 91.5 fL (81.0-99.0); MEAN PLATELET VOLUME 8.7 fL (7.9-10.8); MONOCYTES # (AUTO) 0.4 10^3/uL (0.0-1.0); MONOCYTES % (AUTO) 5.6 %; NEUTROPHILS # (AUTO) 3.8 10^3/uL (1.5-6.6); NEUTROPHILS % (AUTO) 57.7 %; PLT - PLATELET COUNT 182 10^3/uL (130-450); RED BLOOD COUNT 4.25 10^6/uL (4.20-5.40); RED CELL DISTRIBUTION WIDTH 12.7 % (12.0-15.0); WHITE BLOOD COUNT 6.6 x10^3/uL (4.8-10.8)
[2019-07-16 12:08] LABS: ALBUMIN 3.9 g/dL (3.2-5.5); ALBUMIN/GLOBULIN RATIO 1.1 (1.0-2.2); BILIRUBIN,TOTAL 0.3 mg/dL (0.2-1.0); CALCIUM 8.7 mg/dL (8.5-10.3); CREATININE 0.5 mg/dL (0.4-1.0); TOTAL PROTEIN 7.4 g/dL (6.7-8.2)
[2019-07-16 21:22] LABS: TRICHOMONAS VAGINALIS DNA NEGATIVE (NEGATIVE)
[2019-07-17 13:14] LABS: HEPATITIS C ANTIBODY NON-REACTIVE (NON-REACTIVE)
[2019-07-17 14:54] LABS: HIV AG/AB 4TH GEN NON-REACTIVE (NON-REACTIVE)
== END 2019-07-16 11:28 | disposition home or self-care (01) ==
LOC: LAB 11:27
PROVIDERS: ATTEND Nurse Practitioner Family
DX: Z00.00 Encounter for general adult medical examination without abnormal findings (principal); Z11.3 Encounter for screening for infections with a predominantly sexual mode of transmission
CPT/HCPCS: 36415; 80053; 81599; 85025; 86592; 86803; 87389; 87491; 87591; 87661

== ENCOUNTER 2019-09-19 13:25 | Emergency (ER) | payer MEDICAID ==
[2019-09-19 13:48] LABS: BASOPHILS % (AUTO) 0.4 %; EOSINOPHILS % (AUTO) 0.5 %; HGB - HEMOGLOBIN 14.1 g/dL (12.0-16.0); LYMPHOCYTES # (AUTO) 2.3 10^3/uL (1.5-3.5); LYMPHOCYTES % (AUTO) 30.3 %; MEAN CORPUSCULAR HEMOGLOBIN 31.6 pg (27.0-31.0); MEAN CORPUSCULAR HGB CONC 34.4 g/dL (32.0-36.0); MEAN CORPUSCULAR VOLUME 91.9 fL (81.0-99.0); MEAN PLATELET VOLUME 9.3 fL (7.9-10.8); MONOCYTES # (AUTO) 0.5 10^3/uL (0.0-1.0); MONOCYTES % (AUTO) 6.8 %; NEUTROPHILS # (AUTO) 4.7 10^3/uL (1.5-6.6); NEUTROPHILS % (AUTO) 61.6 %; PLT - PLATELET COUNT 215 10^3/uL (130-450); RED BLOOD COUNT 4.46 10^6/uL (4.20-5.40); WHITE BLOOD COUNT 7.6 x10^3/uL (4.8-10.8)
[2019-09-19 13:52] LABS: BILIRUBIN,URINE NEGATIVE (NEGATIVE); CLARITY,URINE CLEAR (CLEAR); GLUCOSE, URINE (UA) NEGATIVE (NEGATIVE); KETONES,URINE (UA) NEGATIVE (NEGATIVE); LEUKOCYTE ESTERASE, URINE NEGATIVE (NEGATIVE); NITRITE,URINE NEGATIVE (NEGATIVE); OCCULT BLOOD,URINE NEGATIVE (NEGATIVE); PROTEIN,URINE NEGATIVE (NEGATIVE); UROBILINOGEN,URINE 0.2 (NORMAL) E.U./dL (NORMAL)
[2019-09-19 14:03] LABS: ALBUMIN 4.8 g/dL (3.2-5.5); ALBUMIN/GLOBULIN RATIO 1.4 (1.0-2.2); BILIRUBIN,TOTAL 0.3 mg/dL (0.2-1.0); CALCIUM 9.8 mg/dL (8.5-10.3); CREATININE 0.7 mg/dL (0.4-1.0); TOTAL PROTEIN 8.3 g/dL (6.7-8.2)
--- NOTE | 2019-09-19 14:11 | ED Physician Documentation ---
History of Present Illness - Stated complaint Stated Complaint: FEMALE /L SIDE BACK PX - Chief complaint Chief Complaint: Abd Pain - History obtained from History obtained from: Patient - Additonal information Additional information: 19-year-old female presents the emergency department for dysuria and left lower pelvic pain. She reports that for 3 to 4 days she has pain when she urinates and is concerned that she could have a urinary tract infection or now a kidney infection. She denies fevers or chills. She has vomited 1 time. She does report to me a history of previous chlamydia infection as well as PID. She reports that she has an IUD in place. She is nonmonogamous with multiple partners recently. She denies any vaginal discharge or dyspareunia. Review of Systems Constitutional: reports: Chills. denies: Fever, Myalgias Throat: denies: Dental pain / toothache, Oral lesions / sores Cardiac: denies: Chest pain / pressure, Palpitations Respiratory: denies: Dyspnea, Cough GI: reports: Abdominal Pain, Vomiting. denies: Nausea, Constipation, Diarrhea : reports: Dysuria, Frequency, Hesitancy PD PAST MEDICAL HISTORY - Past Medical History Past Medical History: Yes Cardiovascular: None Respiratory: None Neuro: None Endocrine/Autoimmune: None GI: None POLICY ANALYST: None : None HEENT: None Psych: Depression, Anxiety, Panic attacks, Other Musculoskeletal: None Derm: None - Past Surgical History Past Surgical History: Yes General: Appendectomy /POLICY ANALYST: Dilation and currettage - Present Medications Home Medications: Ambulatory Orders Medication Instructions Recorded Confirmed Doxycycline Hyclate 100 mg PO BID #28 capsule 09/19/19 metroNIDAZOLE [Flagyl] 500 mg PO BID #28 tablet 09/19/19 - Allergies Allergies/Adverse Reactions: Allergies Allergy/AdvReac Type Severity Reaction Status Date / Time amoxicillin AdvReac Nausea Verified 09/19/19 13:34 [email or web address] [From Chantix] AdvReac Unknown Verified 09/19/19 13:34 - Social History Does the pt smoke?: Yes Smoking Status: Current every day smoker Does the pt drink ETOH?: Yes Does the pt have substance abuse?: No - Immunizations Immunizations are current?: Yes - POLST Patient has POLST: No PD ED PE EXPANDED - General General: Alert, No acute distress, Well developed/nourished - Cardiac Cardiac: Regular Rate, Radial strong equal, Femoral strong equal, Cap refill < 2 sec - Abdomen Abdomen: Normal Bowel sounds, Suprapubic - Female Female : Normal exam, Vaginal Discharge, CMT, Adnexal Tenderness (left adnexa), Other (Moderate amount of white purulent discharge seen in vault. Mild left adnexal tenderness. IUD string seen exiting uterus.) - Derm Derm: Normal color, Warm and dry - Extremities Extremities: Normal - GCS Eye Opening: Spontaneous Motor: Obeys Commands Verbal: Oriented Total: 15 Results - Vitals Vitals: Vital Signs - 24 hr 09/19/19 13:31 Temperature 36.8 C Heart Rate 114 H Respiratory 18 Rate Blood Pressure 123/77 O2 Saturation 98 Oxygen O2 Source Room air - Labs Labs: Microbiology 09/19/19 14:33 Wet Prep - Final Genital - Vaginal Laboratory Tests 09/19/19 09/19/19 09/19/19 13:40 13:40 13:45 WBC 7.6 RBC 4.46 Hgb 14.1 Hct 41.0 MCV 91.9 MCH 31.6 H MCHC 34.4 RDW 13.0 Plt Count 215 MPV 9.3 Neut # (Auto) 4.7 Lymph # (Auto) 2.3 [place] # (Auto) 0.5 Eos # (Auto) 0.0 Baso # (Auto) 0.0 Absolute Nucleated RBC 0.00 Nucleated RBC % 0.0 Sodium Potassium Chloride Carbon Dioxide Anion Gap BUN Creatinine Estimated GFR (MDRD) Glucose Calcium Total Bilirubin AST ALT Alkaline Phosphatase Total Protein Albumin Globulin Albumin/Globulin Ratio Lipase Urine Color YELLOW Urine Clarity CLEAR Urine pH 7.0 Ur Specific [place] 1.015 1.015 Urine Protein NEGATIVE Urine Glucose (UA) NEGATIVE Urine Ketones NEGATIVE Urine Occult Blood NEGATIVE Urine Nitrite NEGATIVE Urine Bilirubin NEGATIVE Urine Urobilinogen 0.2 (NORMAL) Ur Leukocyte Esterase NEGATIVE Ur Microscopic Review NOT INDICATED Urine Culture Comments NOT INDICATED Urine HCG, Qual NEGATIVE 09/19/19 13:45 WBC RBC Hgb Hct MCV MCH MCHC RDW Plt Count MPV Neut # (Auto) Lymph # (Auto) [place] # (Auto) Eos # (Auto) Baso # (Auto) Absolute Nucleated RBC Nucleated RBC % Sodium 139 Potassium 4.0 Chloride 103 Carbon Dioxide 25 Anion Gap 11.0 BUN 8 Creatinine 0.7 Estimated GFR (MDRD) 107 Glucose 94 Calcium 9.8 Total Bilirubin 0.3 AST 21 ALT 15 Alkaline Phosphatase 97 Total Protein 8.3 H Albumin 4.8 Globulin 3.5 Albumin/Globulin Ratio 1.4 Lipase 28 Urine Color Urine Clarity Urine pH Ur Specific [place] Urine Protein Urine Glucose (UA) Urine Ketones Urine Occult Blood Urine Nitrite Urine Bilirubin Urine Urobilinogen Ur Leukocyte Esterase Ur Microscopic Review Urine Culture Comments Urine HCG, Qual - Rads (name of study) US DVT Radiology: Final report received (Bilateral increased adnexal vascularity. This can be seen with PID however it is nonspecific) PD MEDICAL DECISION MAKING - ED course Complexity details: reviewed results, d/w patient ED course: 19-year-old female presents to the emergency department for reported dysuria and what she feels was purulent discharge with urination. However her urine shows no signs of infection. She does report a history of previous chlamydia as well as PID. - On pelvic exam and there was a moderate amount of white purulent discharge seen in the vault as well as exiting from the cervix. Mild left adnexal tenderness. I will plan to obtain a pelvic ultrasound to rule out tubo-ovarian abscess. However this young lady will also be treated as though she has PID. Ceftriaxone will be given in the emergency department and azithromycin and will plan for doxycycline and flagyl on discharge. - Ultrasound completed and does not show any findings of tubo-ovarian abscess. There is increased vascularity within the adnexa but no other acute findings. I have discussed these findings with the patient. She will be discharged on Doxy and Flagyl. She was notified that if her symptoms or not improving she needs to return to the emergency department for reevaluation as she does have an IUD in place. In addition she does have a local camp recreation specialist that she will continue to follow-up with. Departure - Departure Disposition: Home, Self Care Clinical Impression: PID (acute pelvic inflammatory disease) Condition: Stable Record reviewed to determine appropriate education?: Yes Instructions: PID Follow-Up: EMIR HERRING, MSN, PAPER CUTTER OPERATOR [Primary Care Provider] - Prescriptions: Doxycycline Hyclate 100 mg PO BID #28 capsule metroNIDAZOLE [Flagyl] 500 mg PO BID #28 tablet Comments: I am concerned that the pain you are having in your lower pelvic area is a return of the pelvic inflammatory disease. You have been given an injection of some antibiotics today in the emergency department. It is important that you fill the outpatient antibiotics and begin taking as directed. I also recommend that you discuss this ED visit with your sexual partners as they should be tested and treated before you resume any sexual activity. I would like you to schedule follow-up with your camp recreation specialist. Most cases of PID can be adequately treated with outpatient oral antibiotics however there are some cases where it the infection is not fully resolved when women have an IUD in place If you find that your pelvic pain is worsening, you have fevers or your symptoms are not improving then please return to the emergency department
[2019-09-19 14:19] LABS: HCG UR QUAL NEGATIVE
[2019-09-19] MEDS ORDERED: cefTRIAXone 250 MG VIAL IM STA (14:39)
[2019-09-19] MEDS ORDERED: LIDOCAINE 1% 2 ML VIAL MC ONE (14:39)
[2019-09-19] MEDS ORDERED: AZITHROMYCIN 250 MG TABLET PO STA (14:42)
--- NOTE | 2019-09-19 16:12 | Ultrasound Report ---
PROCEDURE: Pelvic Complete INDICATIONS: hx of pid; left adnexal tenderness TECHNIQUE: Real-time transabdominal scanning was performed of the pelvic organs, with image documentation. COMPARISON: Pelvic ultrasound 04/01/2018 FINDINGS: Uterus: Uterus is normal in size at 5.7 x 3.7 x 4.5 cm. Endometrium measures 4 mm in combined thick ness. Intrauterine device is noted in appropriate position. Nabothian cysts are noted. Ovaries: Right ovary measures 43 x 21 x 36 mm. Greater than 12 follicles are noted. Left ovary measu res 34 x 21 x 27 mm. Greater than 12 follicles are noted. Mild appearance of increased adnexal vascul arity bilaterally, right greater than left. Other: No free pelvic fluid. Limited scanning through the kidneys shows no hydronephrosis. IMPRESSION: 1. 1. Bilateral increased adnexal vascularity. This can be seen with PID. However, it is nonspecific . Reviewed by: Laid Duenas MD on 09/19/2019 4:10 PM PDT Approved by: Ladi Duenas MD on 09/19/2019 4:10 PM PDT Station ID: [id number]
--- NOTE | 2019-09-19 16:13 | Ultrasound Report ---
PROCEDURE: Transvaginal INDICATIONS: hx of pid; left adnexal tenderness TECHNIQUE: Real-time scanning was performed of the fetus, with image documentation. Endovaginal scanning: Yes COMPARISON: Pelvic ultrasound 04/01/2018 FINDINGS: Please see pelvic ultrasound report of 09/19/2019. IMPRESSION: Please see pelvic ultrasound report of 09/19/2019. Reviewed by: Ladi Duenas MD on 09/19/2019 4:11 PM PDT Approved by: Ladi Duenas MD on 09/19/2019 4:11 PM PDT Station ID: [id number]
[2019-09-19 16:44] VITALS: BP 116/66
[2019-09-19 21:11] LABS: TRICHOMONAS VAGINALIS DNA NEGATIVE (NEGATIVE)
== END 2019-09-19 16:50 | disposition home or self-care (01) ==
LOC: ED 13:25
DX: N73.9 Female pelvic inflammatory disease, unspecified (principal); Z97.5 Presence of (intrauterine) contraceptive device; F17.200 Nicotine dependence, unspecified, uncomplicated
CPT/HCPCS: 36415; 76830; 76856; 80053; 81003; 81025; 83690; 85025; 87210; 87491; 87591; 87661; 96372; 99284; A9270; 81001; 87086

== ENCOUNTER 2019-10-14 16:15 | Emergency (ER) | payer OTHER, MEDICAID ==
[2019-10-14] MEDS ORDERED: LIDOCAINE 1% 2 ML VIAL MC ONE (16:57)
[2019-10-14] MEDS ORDERED: AZITHROMYCIN 250 MG TABLET PO STA (16:57)
[2019-10-14] MEDS ORDERED: cefTRIAXone 250 MG VIAL IM STA (16:57)
[2019-10-14] MEDS ORDERED: RALTEGRAVIR 400 MG TABLET PO STA (16:58)
[2019-10-14] MEDS ORDERED: lamiVUDine/ZIDOVUDINE 150 MG/300 MG TABLET PO STA (16:58)
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
[2019-10-14 18:25] VITALS: BP 102/78
== END 2019-10-14 18:25 | disposition short-term general hospital (02) ==
LOC: ED 16:15
DX: Z04.41 Encounter for examination and observation following alleged adult rape (principal); F17.200 Nicotine dependence, unspecified, uncomplicated
CPT/HCPCS: 96372; 99283; 99285; A9270

== ENCOUNTER 2021-01-15 18:24 | Emergency (ER) | payer MEDICAID ==
[2021-01-15 18:33] VITALS: BP 115/72
--- NOTE | 2021-01-15 18:52 | ED Physician Documentation ---
PD HPI DYSPNEA - Stated complaint Stated Complaint: SORE THROAT/SOA - Chief complaint Chief Complaint: Resp - History obtained from History obtained from: Patient - Additional information Additional information: 20-year-old with history of amoxicillin allergy presents with a month worth of intermittently productive cough and wheezing at night. Now 3 days worth of sore throat, no fevers at any point. She does use tobacco. Review of Systems Constitutional: denies: Fever, Chills Nose: reports: Rhinorrhea / runny nose Throat: reports: Sore throat Respiratory: reports: Cough. denies: Dyspnea PD PAST MEDICAL HISTORY - Past Medical History Cardiovascular: None Respiratory: Other Neuro: Migraines Endocrine/Autoimmune: None GI: GERD AMMONIA TECHNICIAN: None, Ovarian cysts, Other : None HEENT: None Psych: Depression, Anxiety, Panic attacks, Other Musculoskeletal: None Derm: None - Past Surgical History Past Surgical History: Yes General: Appendectomy /AMMONIA TECHNICIAN: Dilation and currettage - Present Medications Home Medications: Ambulatory Orders Medication Instructions Recorded Confirmed Albuterol Sulf [Ventolin Hfa 1 - 2 puffs INH Q4HR PRN #1 inhaler 01/15/21 Inhaler] Azithromycin [Zithromax] 1 tab PO DAILY #6 tablet 01/15/21 - Allergies Allergies/Adverse Reactions: Allergies Allergy/AdvReac Type Severity Reaction Status Date / Time amoxicillin AdvReac Nausea Verified 01/15/21 18:32 [email or web address] [From Chantix] AdvReac Unknown Verified 01/15/21 18:32 - Social History Does the pt smoke?: Yes Smoking Status: Current every day smoker Does the pt drink ETOH?: Yes Does the pt have substance abuse?: Yes - Immunizations Immunizations are current?: Yes - POLST Patient has POLST: No PD ED PE NORMAL - Vitals Vital signs reviewed: Yes - General General: Alert and oriented X 3, No acute distress - HEENT HEENT: PERRL, EOMI, Other (Red tonsillar pillars without exudates) - Neck Neck: Supple, no meningeal sign, No bony TTP - Cardiac Cardiac: RRR, No murmur - Respiratory Respiratory: No respiratory distress, Clear bilaterally - Neuro Neuro: Alert and oriented X 3, Normal speech - Psych Psych: Normal mood, Normal affect Results - Vitals Vitals: Vital Signs - 24 hr 01/15/21 18:30 Temperature 36.7 C Heart Rate 123 H Respiratory 18 Rate Blood Pressure 115/72 O2 Saturation 98 Oxygen O2 Source Room air PD MEDICAL DECISION MAKING - ED course ED course: No apparent strep throat, but has been sick long enough with bronchitis that a trial of antibiotics is reasonable. Departure - Departure Disposition: 01 Home, Self Care Clinical Impression: Bronchitis Condition: Good Record reviewed to determine appropriate education?: Yes Instructions: ED Bronchitis Asthmatic Prescriptions: Albuterol Sulf [Ventolin Hfa Inhaler] 1 - 2 puffs INH Q4HR PRN #1 inhaler PRN Reason: Shortness Of Air/Wheezing Azithromycin [Zithromax] 1 tab PO DAILY #6 tablet Comments: Follow-up with your doctor next week for recheck, return for new or worsening symptoms.
== END 2021-01-15 19:00 | disposition home or self-care (01) ==
LOC: ED 18:24
DX: J40 Bronchitis, not specified as acute or chronic (principal); F17.200 Nicotine dependence, unspecified, uncomplicated
CPT/HCPCS: 99282; 99283

== ENCOUNTER 2021-02-10 17:26 | Outpatient (CLI) | payer MEDICAID ==
[2021-02-10 22:36] LABS: BACTERIAL VAGINOSIS DNA NEGATIVE (NEGATIVE); CANDIDA GLABRATA DNA POSITIVE (NEGATIVE); CANDIDA GROUP DNA POSITIVE (NEGATIVE); CANDIDA KRUSEI DNA NEGATIVE (NEGATIVE); TRICHOMONAS VAGINALIS DNA POSITIVE (NEGATIVE)
== END 2021-02-10 17:27 | disposition home or self-care (01) ==
LOC: LAB 17:26
PROVIDERS: ATTEND Obstetrics & Gynecology
DX: Z32.01 Encounter for pregnancy test, result positive (principal); N76.0 Acute vaginitis
CPT/HCPCS: 36415; 84702; 87661; 87801

== ENCOUNTER 2022-04-25 15:59 | Outpatient (CLI) | payer MEDICAID ==
[2022-04-25 16:15] LABS: HCT - HEMATOCRIT 36.8 % (37.0-47.0); HGB - HEMOGLOBIN 12.7 g/dL (12.0-16.0); MEAN CORPUSCULAR HEMOGLOBIN 32.8 pg (27.0-31.0); MEAN CORPUSCULAR HGB CONC 34.5 g/dL (32.0-36.0); MEAN CORPUSCULAR VOLUME 95.1 fL (81.0-99.0); MEAN PLATELET VOLUME 8.8 fL (7.9-10.8); RED BLOOD COUNT 3.87 10^6/uL (4.20-5.40); RED CELL DISTRIBUTION WIDTH 12.5 % (12.0-15.0)
[2022-04-25 16:39] LABS: THYROID STIMULATING HORMONE 0.56 uIU/mL (0.34-5.60)
[2022-04-25 16:41] LABS: FREE T4 (FREE THYROXINE) 0.9 ng/dL (0.58-1.64)
[2022-04-25 16:45] LABS: FERRITIN 21.2 ng/mL (11.0-306.8)
[2022-04-25 21:15] LABS: ESTIMATED AVERAGE GLUCOSE 94 mg/dL (70-100); HEMOGLOBIN A1c% 4.9 % (4.27-6.07)
== END 2022-04-25 16:00 | disposition home or self-care (01) ==
LOC: LAB 15:59
PROVIDERS: ATTEND Nurse Practitioner
DX: N92.0 Excessive and frequent menstruation with regular cycle (principal); R10.2 Pelvic and perineal pain
CPT/HCPCS: 36415; 82728; 83036; 84439; 84443; 85027

== ENCOUNTER 2022-05-13 21:34 | Outpatient (CLI) | payer MEDICAID ==
--- NOTE | 2022-05-14 00:09 | Ultrasound Report ---
PROCEDURE: Pelvic w/Transvaginal INDICATIONS: PELVIC PAIN TECHNIQUE: Real-time scanning was performed of the pelvic organs, with image documentation. Additional endovagi nal scanning was necessary due to incomplete visualization of the adnexal and endometrial structures by transabdominal scanning. COMPARISON: 09/19/2019 FINDINGS: Uterus: Uterus is anteverted and normal in size at 7.3 x 3.4 x 3.7 cm. The myometrium is heterogene ous. The endometrium measures 4 mm in combined thickness. Ovaries: The right ovary measures 4.2 x 2.9 x 3.2 cm, with a calculated ovarian volume of 20.7 cc. The left ovary measures 3.3 x 2.2 x 3 cm, with a calculated ovarian volume of 11.2 cc. The ovaries h ave a normal sonographic appearance, with cystic follicles seen involving each ovary, which are consi dered to be within physiologic limits. Less than 12 follicles can be seen in each ovary. No adnexal masses are seen. Other: No pathologic free abdominal or pelvic fluid. IMPRESSION: Pelvic ultrasound within normal limits. Reviewed by: Sd Iverson MD on 05/13/2022 11:08 PM KALLI Approved by: Sd Iverson MD on 05/13/2022 11:08 PM KALLI Station ID: [id number]
== END 2022-05-13 21:35 | disposition home or self-care (01) ==
LOC: DI 21:34
PROVIDERS: ATTEND Nurse Practitioner
DX: N92.0 Excessive and frequent menstruation with regular cycle (principal); R10.2 Pelvic and perineal pain

== ENCOUNTER 2022-10-05 08:00 | Outpatient (CLI) | payer MEDICAID ==
[2022-10-05 20:40] LABS: BACTERIAL VAGINOSIS DNA POSITIVE (NEGATIVE); CANDIDA GLABRATA DNA NEGATIVE (NEGATIVE); CANDIDA GROUP DNA NEGATIVE (NEGATIVE); CANDIDA KRUSEI DNA NEGATIVE (NEGATIVE); TRICHOMONAS VAGINALIS DNA NEGATIVE (NEGATIVE)
[2022-10-05 21:50] LABS: CHLAMYDIA TRACHOMATIS DNA NEGATIVE (NEGATIVE); NEISSERIA GONORRHOEAE DNA NEGATIVE (NEGATIVE)
== END 2022-10-05 23:59 | disposition home or self-care (01) ==
LOC: LAB.WC 08:00
PROVIDERS: ATTEND Obstetrics & Gynecology
DX: Z11.3 Encounter for screening for infections with a predominantly sexual mode of transmission (principal)
CPT/HCPCS: 81514; 87491; 87591; 87661

== ENCOUNTER 2022-11-11 12:59 | Emergency (ER) | payer MEDICAID ==
[2022-11-11 13:14] VITALS: BP 140/80; O2SAT 99
== END 2022-11-11 15:05 | disposition home or self-care (01) ==
LOC: ED 12:59
DX: Z53.21 Procedure and treatment not carried out due to patient leaving prior to being seen by health care provider (principal)
CPT/HCPCS: 93005

== ENCOUNTER 2023-08-31 10:24 | Outpatient (CLI) | payer MEDICAID ==
[2023-08-31 10:44] LABS: BASOPHILS % (AUTO) 0.4 %; EOSINOPHILS # (AUTO) 0.1 10^3/uL (0.0-0.7); EOSINOPHILS % (AUTO) 0.9 %; HCT - HEMATOCRIT 36.9 % (37.0-47.0); HGB - HEMOGLOBIN 12.5 g/dL (12.0-16.0); LYMPHOCYTES # (AUTO) 2.3 10^3/uL (1.5-3.5); LYMPHOCYTES % (AUTO) 33.7 %; MEAN CORPUSCULAR HEMOGLOBIN 33.2 pg (27.0-31.0); MEAN CORPUSCULAR HGB CONC 33.9 g/dL (32.0-36.0); MEAN CORPUSCULAR VOLUME 98.1 fL (81.0-99.0); MEAN PLATELET VOLUME 8.7 fL (7.9-10.8); MONOCYTES # (AUTO) 0.6 10^3/uL (0.0-1.0); MONOCYTES % (AUTO) 8.2 %; NEUTROPHILS # (AUTO) 3.8 10^3/uL (1.5-6.6); NEUTROPHILS % (AUTO) 56.7 %; PLT - PLATELET COUNT 237 10^3/uL (130-450); RED BLOOD COUNT 3.76 10^6/uL (4.20-5.40); RED CELL DISTRIBUTION WIDTH 11.9 % (12.0-15.0); WHITE BLOOD COUNT 6.7 x10^3/uL (4.8-10.8)
[2023-08-31 10:58] LABS: ALBUMIN 4.7 g/dL (3.2-5.5); ALBUMIN/GLOBULIN RATIO 1.4 (1.0-2.2); BILIRUBIN,TOTAL 0.7 mg/dL (0.2-1.0); CREATININE 0.7 mg/dL (0.6-1.3)
[2023-08-31 11:07] LABS: AMPHETAMINE SCREEN,URINE POSITIVE (NEGATIVE); BARBITURATE SCREEN,UR NEGATIVE (NEGATIVE); BENZODIAZEPINES SCREEN, URINE NEGATIVE (NEGATIVE); BUPRENORPHINE SCREEN, URINE NEGATIVE (NEGATIVE); COCAINE SCREEN URINE NEGATIVE (NEGATIVE); METHADONE SCREEN, URINE NEGATIVE (NEGATIVE); METHAMPHETAMINES SCREEN, URINE NEGATIVE (NEGATIVE); OPIATE SCREEN, URINE NEGATIVE (NEGATIVE); OXYCODONE SCREEN, URINE NEGATIVE (NEGATIVE); THC CANNABINOID SCREEN, URINE POSITIVE (NEGATIVE); TRICYCLIC ANTIDEPRESSANT,URINE NEGATIVE (NEGATIVE)
[2023-08-31 11:14] LABS: THYROID STIMULATING HORMONE 2.08 uIU/mL (0.34-5.60)
[2023-08-31 14:21] LABS: CHLAMYDIA TRACHOMATIS DNA NEGATIVE (NEGATIVE); NEISSERIA GONORRHOEAE DNA NEGATIVE (NEGATIVE); TRICHOMONAS VAGINALIS DNA NEGATIVE (NEGATIVE)
[2023-09-01 02:08] LABS: HIV SCREEN 4TH GENERATION Non Reactive (Non Reactive)
[2023-09-01 03:11] LABS: HSV 1 IGG TYPE SPEC 1.26 index (0.00-0.90); HSV 2 IGG TYPE SPEC <0.91 index (0.00-0.90)
[2023-09-01 04:09] LABS: RPR Non Reactive (Non Reactive)
[2023-09-02 00:07] LABS: HCV AB Non Reactive (Non Reactive)
== END 2023-08-31 10:25 | disposition home or self-care (01) ==
LOC: LAB 10:24
PROVIDERS: ATTEND Physician Assistant
DX: R20.2 Paresthesia of skin (principal); Z11.3 Encounter for screening for infections with a predominantly sexual mode of transmission
CPT/HCPCS: 36415; 80053; 80306; 82607; 82746; 84443; 85025; 86592; 86695; 86696; 86803; 87389; 87491; 87591; 87661